=== PATIENT | female | born 1950 | race Caucasian/White ===

== ENCOUNTER → 2018-06-30 | Outpatient (CLI) | LOC: CAR 06:43 | PROVIDERS: ATTEND Internal Medicine | DX: R06.02 Shortness of breath (principal); R00.2 Palpitations; I48.91 Unspecified atrial fibrillation | CPT/HCPCS: 93227 ==

== ENCOUNTER 2018-07-05 06:48 | Outpatient (CLI) | payer OTHER ==
--- NOTE | 2018-07-05 12:21 | STRESSECHO ---
Date of Test: 07/05/18 Ordering Physician: DR. MELVA COOL Occupation: RETIRED Reason for Exam: SOB, A-FIB, PALPITATIONS Smoking History: NO Height: 68" Weight: 200 LBS Current Medications: DIOVAN, ZOCOR, ELIQUIS, SERTRALINE, SOLUTOL Physical Findings: SINUS RHYTHM/ NO ACUTE CHANGES Resting EKG: SINUS RHYTHM / NO ACUTE CHANGES Target Heart Rate: 131/155 S-T SEGMENT STAGE MPH/GRADE HEART RATE BPM BLOOD PRESSURE MMHG RHYTHM +/- ELEVATION DEPRESSION SYMPTOMS,COMMENTS AT REST 56 140/90 SR X NONE 1 1.7/10% 95 150/72 SR X NONE 2 2.5/12% 115 182/90 SR X NONE 3 3.4/14% 4 4.2/16% 5 5.0/18% Immediately After 120 SR X FATIGUE Minutes Post Exercise 4" 78 180/90 SR X FATIGUE Minutes Post Exercise 10" 74 142/88 SR X FATIGUE DURATION OF EXERCISE: 7:00 MAXIMUM HEART RATE REACHED: 120 BPM REASON FOR TERMINATION: FATIGUE 97% OXYGEN SATURATION WITH EXERCISE ON ROOM AIR METS: 10.1 INTERPRETATION: 1. NO EVIDENCE OF ISCHEMIA BY ST-T WAVE FROM RESTING 56 BPM TO 120 BPM 2. NO CHEST PAIN OR DISCOMFORT 3. COUPLE OF PVC'S WITH EXERCISE 4. BLOOD PRESSURE RESPONSE: MILD SYSTOLIC HYPERTENSION WITH EXERCISE NORMAL LEFT VENTRICULAR CONTRACTILITY--RESTING AND POST EXERCISE MTDD
--- NOTE | 2018-07-05 12:41 | ECHOSTRESS ---
Date of Exam: 07/05/18 Ordering Physician: DR. MELVA COOL Reason for Echo: A FIB, PALPITATIONS, SOB, STRESS TEST--NO ISCHEMIA M-Mode Normal Adult Results LV Dimensions Normal Adult Results AoV Opening excursions >1.6 LVEDD-base- 3.5-5.8 Ao root dimensions 2.0-3.7 LVESD-base- 3.1-4.6 L. Atrium dimensions 1.9-3.8 Post. Wall thickness 0.8-1.1 IV septum (thickness) 0.7-1.2 Post. Wall excursion 0.72-1.3 Septal motion Systolic motion R. Ventricular cavity 1.5-2.0 LVEF 60% Paradoxical septal wall motion 2-D: NORMAL LEFT VENTRICULAR CONTRACTILITY--RESTING AND POST EXERCISE M-MODE: MV: AV: TV: PV: CHAMBER SIZE: WALL MOTION: NORMAL LEFT VENTRICULAR CONTRACTILITY--RESTING AND POST EXERCISE PERICARDIUM: INTERPRETATION: 1. NORMAL LEFT VENTRICULAR CONTRACTILITY--RESTING AND POST EXERCISE MTDD
== END 2018-07-05 06:49 | disposition home or self-care (01) ==
LOC: CAR 06:48
PROVIDERS: ATTEND Internal Medicine
DX: R06.02 Shortness of breath (principal); R00.2 Palpitations; I48.91 Unspecified atrial fibrillation